=== PATIENT | female | born 1980 | race Caucasian/White ===

== ENCOUNTER → 2020-10-29 13:20 | Outpatient (CLI) | payer OTHER, SELFPAY ==
--- NOTE | ~2020-10-29 | XR_ITS ---
XR knee RT min 4V 10/29/2020 14:18 INDICATION: Right knee pain PROCEDURE: 4 views right knee COMPARISON: No prior studies for comparison. FINDINGS: Fracture, dislocation or subluxation is not identified. The soft tissues appear within norm al limits. No foreign bodies are identified. IMPRESSION: 1: NO ACUTE BONE OR JOINT ABNORMALITY IDENTIFIED. Reviewed, dictated and finalized at location B. OFFICIAL
== END ==
PROVIDERS: PCP Pediatrics; Visit Provider Nurse Practitioner Family
DX: M25.561 Pain in right knee (principal)
CPT/HCPCS: 73564